=== PATIENT | male | born 1985 | race Caucasian/White ===

== ENCOUNTER 2016-11-25 21:24 | Emergency (ER) | payer BC ==
[~2016-11-25] VITALS: Ht 193 cm; Wt 127.0 kg
[~2016-11-25 21:24] MED LIST: PROM25SU8 PO; Z.0.NO CURRENT MEDS
[2016-11-25 21:28] VITALS: BP 131/75; PULSE 70; RESP 16; TEMP 99.2; O2SAT 96
--- NOTE | 2016-11-25 21:51 | PD ---
Physical Exam Date Seen by Provider: Nov 25, 2016 Time Seen by Provider: 21:50 Narrative 31 year old male here for left wrist injury. Playing softball. Wrist extended almost fully. Painful and swollen. pain is 8/10. No numbness, tingling, weakness. No prior injuries. No other injuries. Vitals are stable in triage. Awaiting bed placement. Data Data Last Documented VS Vital Signs Date Time Temp Pulse Resp B/P (MAP) Pulse Ox O2 Delivery O2 Flow Rate FiO2 11/25/16 21:28 99.2 70 16 131/75 (93) 96 Room Air Orders Orders Wrist, Complete ([id number]) (11/25/16 ) [facility] Medical Record Reviewed: Yes Supervised Visit with CECE: Vahe Angulo Nov 25, 2016 21:51
--- NOTE | 2016-11-25 22:20 | PD ---
HPI Chief Complaint: Pain: Acute or Chronic Time Seen by Provider: 22:10 Travel History International Travel<30 days: No Contact w/Intl Traveler<30days: No Traveled to known affect area: No History of Present Illness HPI 31-year-old [id number] white male presents to emergency Department with complaints of a left wrist injury while playing softball this evening. Approximately 2 hours ago he was attempting to tag out another player as they ran by him. He states that he jammed his left wrist extended his wrist and he heard and felt something pop and crack. Since then he has had moderate to severe pain in his wrist. Worse with movement. Some relief with holding it still. He denies any numbness or tingling in his fingers. No other injuries. The patient reports the pain at 8/10 PFSH Past Medical History Medical History: Denies Significant Hx Diminished Hearing: No Immunizations Current: Yes Tetanus Vaccination: < 5 Years Past Surgical History Surgical History: No Previous Surgery Social History Alcohol Use: Yes Tobacco Use: No Substance Use: No Allergies-Medications (Allergen,Severity, Reaction): Coded Allergies: No Known Allergies (Verified , 11/25/16) Reported Meds & Prescriptions Reported Meds & Active Scripts Active Lortab (Hydrocodone-Acetaminophen) 5-325 Mg Tab 1-2 Tab PO Q6H PRN Promethazine Hcl (Promethazine HCl) 25 Mg Tab 12.5-25 Mg PO Q6HPRN FOR NAUSEA/VOMITING Reported No Current Meds (Miscellaneous Medication) Misc Review of Systems Except as stated in HPI: all other systems reviewed are Neg Physical Exam Narrative GENERAL: This is a well-nourished, well-developed patient, in no apparent distress. SKIN: No rashes, ecchymoses or lesions. Warm and dry. HEAD: Atraumatic. Normocephalic. EYES: PERRL, EOMI, no discharge or injection. No scleral icterus. EARS: Clear NOSE: Nasal turbinates appear normal. THROAT: Mucosa pink and moist. Airway patent. NECK: Trachea midline. supple, moves head freely. LUNGS: Clear to auscultation. CV: Regular in rhythm. ABDOMEN: Soft nontender. EXT: No clubbing cyanosis. Examination of the left upper extremity reveals swelling in the wrist. He has tenderness over the distal radius and anatomical snuffbox. He has global decreased range of motion. No pain in the fingers, forearm, elbow or shoulder. He has intact median/ulnar/radial nerves. The skin is intact. There is no erythema or warmth. The right upper extremity as well as lower extremities are without localizing bony tenderness or deformity. Data Data Last Documented VS Vital Signs Date Time Temp Pulse Resp B/P (MAP) Pulse Ox O2 Delivery O2 Flow Rate FiO2 11/25/16 21:28 99.2 70 16 131/75 (93) 96 Room Air Orders Orders Wrist, Complete ([id number]) (11/25/16 ) Ice/Cold Pack (11/25/16 22:22) Splint Or Brace Apply/Monitor (11/25/16 22:22) Acetamin-Hydrocod 325-5 Mg (Lynden 5-325 (11/25/16 22:30) Ed Discharge Order (11/25/16 22:30) MDM Medical Decision Making Medical Screen Exam Complete: Yes Emergency Medical Condition: Yes Medical Record Reviewed: Yes Interpretation(s) Left wrist: Patient has a fracture of the radial styloid Differential Diagnosis MDM: High Differential diagnoses: Fracture, sprain, strain, dislocation, contusion, neurovascular injury Narrative Course Patient has a radial styloid fracture. He is given 2 Lortab 5 a grams by mouth. He is placed in a thumb spica splint. Sling. This is left radial styloid fracture Diagnosis Primary Impression: Closed fracture of radial styloid Qualified Codes: S52.515A - Nondisplaced fracture of left radial styloid process, initial encounter for closed fracture Referrals: Dev Murguia MD 3 days Patient Instructions: Narcotic given in the ED, General Instructions Departure Forms: Tests/Procedures, Work Release Special Instructions: No use of the left arm until released by orthopedics Additional Instructions: Rest. Elevation. Splint. Keep clean and dry. Ice. Follow-up with Dr. Murguia in the next 3-5 days. Med/Other Pt SpecificInfo: Prescription(s) given Scripts Hydrocodone-Acetaminophen (Lortab) 5-325 Mg Tab 1-2 TAB PO Q6H Y for PAIN, #30 TAB 0 Refills Prov: Baldev Veliz MD 11/25/16 Disposition: 01 DISCHARGE HOME Condition: Stable Gavin Marrero Nov 25, 2016 22:20
[2016-11-25] MEDS ORDERED: HYDR-3533 PO (22:23)
--- NOTE | 2016-11-25 22:23 | RADRPT ---
EXAM DATE/TIME: 11/25/2016 22:13 [facility] COMPARISON: No previous studies available for comparison. INDICATIONS : Wrist pain at medial wrist. MEDICAL HISTORY : None. SURGICAL HISTORY : None. ENCOUNTER: Initial ACUITY: 1 day PAIN SCORE: 0/10 LOCATION: Left wrist FINDINGS: There is a nondisplaced intra-articular fracture involving the distal radius. The ulnar is grossly in tact. No joint dislocation. Carpal bones are grossly intact. CONCLUSION: Nondisplaced intra-articular fracture distal radius. Gil Rivas MD on November 25, 2016 at 22:20 Board Certified Radiologist. This report was verified electronically.
[2016-11-25] MEDS ORDERED: ACETAMINOPHEN/HYDROcodone 325 MG/5 MG TAB PO ONE (22:30)
== END 2016-11-25 22:47 | disposition home or self-care (01) ==
LOC: NEPK 21:24
DX: S52.515A Nondisplaced fracture of left radial styloid process, initial encounter for closed fracture (principal); W51.XXXA Accidental striking against or bumped into by another person, initial encounter; Y93.64 Activity, baseball
CPT/HCPCS: 73110; 99283; L3808